=== PATIENT | female | born 1965 | race Caucasian/White ===

== ENCOUNTER 2020-05-01 08:20 | Outpatient (CLI) | payer OTHER, SELFPAY ==
--- NOTE | ~2020-05-01 | MR_ITS ---
EXAMINATION: MR brain/brain stem wo/w con DATE: 05/01/2020 09:39 INDICATION: Multiple sclerosis. TECHNIQUE: Magnetic resonance imaging (MRI) of the brain and brainstem was performed without and with 14 mL MultiHance intravenous contrast. Sequences included sagittal and axial T1-weighted FLAIR, axia l T1-weighted FSE, axial diffusion-weighted FS EPI, sagittal T2-weighted FLAIR, axial T2*-weighted GR E, axial T2-weighted FLAIR Propeller, and axial T2-weighted Propeller. Postcontrast sequences include d axial, coronal, and sagittal T1-weighted FSE. Apparent diffusion coefficient (ADC) maps were create d. COMPARISON: None. FINDINGS: There are greater than 40 total lesions of increased T2-weighted signal intensity in the br ain. Of these lesions, many are periventricular, 2 are juxtacortical, and none are infratentorial. Le sions in the deep parietal white matter bilaterally demonstrate cystic encephalomalacia. None of the lesions enhance. There is no acute ischemic infarct. A punctate focus of decreased T2*weighted signal intensity in the right cerebellar white matter may be a dystrophic calcification or old microhemorrh age. The ventricles are normal in size. There is mild mucosal thickening in the paranasal sinuses. Th e orbits are normal. The mastoid air cells are normal. IMPRESSION: 1. Cerebral white matter disease, consistent with multiple sclerosis. Reviewed, dictated and finalized at location A.
[2020-05-01 09:00] LABS: Estimated Glomerular Filt Rate > 60
== END 2020-05-01 08:21 | disposition home or self-care (01) ==
LOC: ANHIMG 08:24
PROVIDERS: Visit Provider Psychiatry & Neurology Neurology
DX: G35 Multiple sclerosis (principal)
CPT/HCPCS: 36415; 70553; A9577